=== PATIENT | male | born 1965 | race African-American/Black ===

== ENCOUNTER 2018-07-26 06:47 | Inpatient (IN) | payer SELFPAY ==
[2018-07-26 07:34] LABS: ADD MAN DIFF? NO
[2018-07-26 07:43] LABS: BASOPHIL # 0.1 10^3/ul (0.0-0.1); BASOPHILS % 0.6 % (0.0-2.0); EOSINOPHILS # 0.3 10^3/ul (0.0-0.5); EOSINOPHILS % 2.9 % (0.0-7.0); HEMATOCRIT 34.3 % (42.0-52.0); HEMOGLOBIN 12.8 g/dl (14.0-18.0); LYMPHOCYTES # 0.8 10^3/ul (0.8-2.9); LYMPHOCYTES % 8.5 % (15.0-51.0); MEAN CORPUSCULAR HEMOGLOBIN 33.7 pg (29.0-33.0); MEAN CORPUSCULAR VOLUME 90.3 fl (82.0-101.0); MEAN PLATELET VOLUME 10.3 fl (7.4-10.4); MONOCYTE # 0.9 10^3/ul (0.3-0.9); MONOCYTES % 10.1 % (0.0-11.0); NEUTROPHIL # 6.9 10^3/ul (1.6-7.5); NEUTROPHILS % 77.5 % (39.0-77.0); PLATELET COUNT 142 10^3/UL (140-415); RED CELL DISTRIBUTION WIDTH 14.1 % (11.5-14.5)
[2018-07-26 07:43] LABS: WHITE BLOOD COUNT 8.9 10^3/ul (4.8-10.8)
[2018-07-26 07:55] LABS: MEAN CORPUSCULAR HGB CONC 37.3 g/dl (32.0-37.0)
[2018-07-26 07:57] LABS: ALANINE AMINOTRANSFERASE 61 IU/L (13-69); ALBUMIN 3.7 g/dl (3.3-4.9); ALBUMIN/GLOBULIN RATIO 1.05; ALKALINE PHOSPHATASE 357 IU/L (42-121); ANION GAP 19 (8-16); ASPARTATE AMINO TRANSFERASE 219 IU/L (15-46); BILIRUBIN,INDIRECT 0.3 mg/dl (0-1.1); BILIRUBIN,TOTAL 0.3 mg/dl (0.2-1.3); CALCIUM 8.3 mg/dl (8.4-10.2); CARBON DIOXIDE 21 mmol/L (21-31); CHLORIDE 85 mmol/L (97-110); CREATININE 0.44 mg/dl (0.61-1.24); GLUCOSE 110 mg/dl (70-220); SODIUM 121 mmol/L (135-144); TOTAL PROTEIN 7.2 g/dl (6.1-8.1)
[2018-07-26 07:58] LABS: AMMONIA 20 umol/l (9-30)
[2018-07-26 08:01] LABS: BLOOD UREA NITROGEN < 2 mg/dl (7-20); PROTIME 14.4 Sec (11.9-14.9); PT RATIO 1.1
[2018-07-26 08:02] LABS: PARTIAL THROMBOPLASTIN TIME 39.1 Sec (23.0-35.0)
[2018-07-26 08:10] LABS: TROPONIN-I < 0.012 ng/ml (0.000-0.120)
[2018-07-26] MEDS: MULTIVITAMINS 10 ML, THIAMINE 100 MG, FOLIC ACID 1 MG, MAGNESIUM SULFATE 2 GM in SOD CH... IV (08:42)
[2018-07-26] MEDS ORDERED: ONDANSETRON 4 MG INJ IV (09:00)
[2018-07-26] MEDS ORDERED: ACETAMINOPHEN 325 MG TAB PO (09:00)
[2018-07-26 11:14] LABS: ADD UMIC YES; UR ASCORBIC ACID NEGATIVE (NEGATIVE); UR BILIRUBIN (Dip) NEGATIVE (NEGATIVE); UR BLOOD (Dip) 1+ mg/dL (NEGATIVE); UR CLARITY CLEAR (CLEAR); UR COLOR STRAW (YELLOW); UR GLUCOSE (Dip) NEGATIVE (NEGATIVE); UR KETONES (Dip) NEGATIVE (NEGATIVE); UR LEUKOCYTE ESTERASE (Dip) NEGATIVE Leu/ul (NEGATIVE); UR NITRITE (Dip) NEGATIVE (NEGATIVE); UR RBC 0 /HPF (0-5); UR SPECIFIC GRAVITY (Dip) 1.002 (1.003-1.030); UR TOTAL PROTEIN (Dip) NEGATIVE (NEGATIVE); UR UROBILINOGEN (Dip) NEGATIVE (NEGATIVE); UR WBC 1 /HPF (0-5)
[2018-07-26 11:40] LABS: AMPHETAMINE/METHAMPHETAMINE NEGATIVE (NEGATIVE); BARBITURATES NEGATIVE (NEGATIVE); BENZODIAZEPINES NEGATIVE (NEGATIVE)
[2018-07-26 11:41] LABS: CANNABINOIDS NEGATIVE (NEGATIVE); COCAINE NEGATIVE (NEGATIVE); OPIATES NEGATIVE (NEGATIVE)
[2018-07-26] MEDS: LORAZEPAM 2 MG INJ IV (11:45)
[2018-07-26] MEDS: DEXTROSE 5%-0.45% NACL 1,000 ML IV ×2 (11:54→20:35)
[2018-07-26 12:52] LABS: MAGNESIUM 2.2 mg/dl (1.7-2.5)
[2018-07-26] MEDS: CHLORDIAZEPOXIDE 25 MG CAP PO ×2 (13:27→20:35)
[2018-07-26] MEDS: NICOTINE (21 MG/24 HR) PATCH TRANSDERM (16:37)
[2018-07-27] MEDS ORDERED: hydrALAzine 20 MG INJ IV (02:00)
[2018-07-27] MEDS: DEXTROSE 5%-0.45% NACL 1,000 ML IV (05:20)
[2018-07-27 06:16] LABS: ADD MAN DIFF? NO
[2018-07-27 06:30] LABS: WHITE BLOOD COUNT 7.5 10^3/ul (4.8-10.8)
[2018-07-27 06:30] LABS: BASOPHILS % 0.4 % (0.0-2.0); EOSINOPHILS # 0.2 10^3/ul (0.0-0.5); HEMATOCRIT 36.1 % (42.0-52.0); HEMOGLOBIN 12.9 g/dl (14.0-18.0); MEAN CORPUSCULAR HGB CONC 35.7 g/dl (32.0-37.0); MEAN CORPUSCULAR VOLUME 92.3 fl (82.0-101.0); MEAN PLATELET VOLUME 10.7 fl (7.4-10.4); MONOCYTE # 1.1 10^3/ul (0.3-0.9); MONOCYTES % 14.7 % (0.0-11.0); NEUTROPHIL # 5.2 10^3/ul (1.6-7.5); NEUTROPHILS % 69.5 % (39.0-77.0); PLATELET COUNT 139 10^3/UL (140-415); POSITIVE DIFF @See below; RED BLOOD COUNT 3.91 10^6/ul (4.70-6.10); RED CELL DISTRIBUTION WIDTH 14.6 % (11.5-14.5)
[2018-07-27 07:41] LABS: ALANINE AMINOTRANSFERASE 54 IU/L (13-69); ALBUMIN 3.7 g/dl (3.3-4.9); ALBUMIN/GLOBULIN RATIO 1.05; ALKALINE PHOSPHATASE 358 IU/L (42-121); ANION GAP 13 (8-16); ASPARTATE AMINO TRANSFERASE 202 IU/L (15-46); BILIRUBIN,INDIRECT 0.4 mg/dl (0-1.1); BILIRUBIN,TOTAL 0.4 mg/dl (0.2-1.3); BLOOD UREA NITROGEN 2 mg/dl (7-20); CARBON DIOXIDE 26 mmol/L (21-31); CHLORIDE 95 mmol/L (97-110); CREATININE 0.56 mg/dl (0.61-1.24); GLUCOSE 93 mg/dl (70-220); POTASSIUM 4.3 mmol/L (3.5-5.1); SODIUM 130 mmol/L (135-144); TOTAL PROTEIN 7.2 g/dl (6.1-8.1)
[2018-07-27] MEDS: CHLORDIAZEPOXIDE 25 MG CAP PO ×3 (09:14→17:03)
[2018-07-27] MEDS: NICOTINE (21 MG/24 HR) PATCH TRANSDERM (09:15)
[2018-07-27] MEDS: SOD CHLORIDE 0.9% 1,000 ML IV (11:00)
[2018-07-27] MEDS: MULTIVITAMINS 10 ML, THIAMINE 100 MG, FOLIC ACID 1 MG in SOD CHLORIDE 0.9% 1,000 ML IVPB (11:42)
[2018-07-28] MEDS ORDERED: CHLORDIAZEPOXIDE 25 MG CAP PO (13:00)
== END 2018-07-27 18:45 | disposition home or self-care (01) | DRG 641 ==
LOC: E/R 06:47 → 5EC 08:51 → TEL 13:18
DX: E87.1 Hypo-osmolality and hyponatremia (principal); F10.239 Alcohol dependence with withdrawal, unspecified; F41.9 Anxiety disorder, unspecified; K70.30 Alcoholic cirrhosis of liver without ascites; I10 Essential (primary) hypertension; Z72.0 Tobacco use
CPT/HCPCS: 36415; 70450; 70551; 71045; 76705; 80053; 80307; 81001; 82140; 82962; 83735; 84484; 85025; 85610; 85730; 93005; 96374; 99285-25